=== PATIENT | female | born 1950 | race Caucasian/White ===

== ENCOUNTER → 2018-02-20 | Outpatient (CLI) | payer MEDICARE, OTHER ==
--- NOTE | 2018-02-20 16:46 | Diagnostic Imaging Report ---
TECHNIQUE: Magnetic resonance imaging of the LEFT KNEE was performed WITHOUT injected contrast. HISTORY: Effusion, instability, twisted knee COMPARISON: None available. FINDINGS: LIGAMENTS AND TENDONS: ACL: Intact PCL: Intact Collateral ligaments: Intact Iliotibial band: Unremarkable Popliteal tendon: Intact Extensor mechanism: Intact, minimal intrasubstance degeneration of the patellar tendon near the inferior pole of the patella. JOINT: Menisci: Medial: Complex tearing of the posterior horn near the tibial root attachment, results in high-grade attenuation. Lateral: Intact Articular Cartilage: Medial Compartment: Low-grade erosion of the weightbearing cartilage. Lateral Compartment: No focal defect. Patellofemoral Compartment: High-grade erosion and full-thickness fissuring, most notably near the junction of the lateral facet and apex of the patella. Joint Fluid: The amount of fluid within the joint is within physiologic limits. BONES: No focal or infiltrative bone marrow replacing abnormality. No acute fracture. SOFT TISSUES: Prominent superficial venous varicosities. IMPRESSION: 1. 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 2. Degenerative posterior root tear of the medial meniscus. 3. Minimal proximal patellar tendinosis. Signed by: Dr. Jean Marie Mckeon D.O., M.M.M. on 02/20/2018 4:42 PM
== END ==
LOC: MRI 14:57
PROVIDERS: ATTEND Orthopaedic Surgery
DX: M17.12 Unilateral primary osteoarthritis, left knee (principal); M23.8X2 Other internal derangements of left knee; M25.362 Other instability, left knee; M25.462 Effusion, left knee